=== PATIENT | female | born 1955 | race Caucasian/White ===

== ENCOUNTER 2023-09-29 05:08 | Observation (INO) ==
--- NOTE | 2023-09-04 15:30 | PAT Medication Instructions ---
Medication Instructions Date of Service September 04, 2023 Home Medications Medication Instructions Recorded Wheeled Walker #1 ea 07/27/23 Medication List: ascorbic acid 1,000 bg-fairnahnvqnb-vqwavptw powder effervescent pack (Emergen- C) 1 ea PO UD cholecalciferol (vitamin D3) 25 mcg (1,000 unit) capsule (Vitamin D3) 1,000 unit PO DAILY hydrochlorothiazide 12.5 mg tablet 12.5 mg PO QAM ibuprofen 600 mg tablet 600 mg PO UD PRN hip pain naproxen sodium 220 mg tablet (Aleve) 220 mg PO Q8H PRN hip pain MEDICATION INSTRUCTIONS: ASK your surgeon for instructions ibuprofen 600 mg tablet 600 mg PO UD PRN hip pain naproxen sodium 220 mg tablet (Aleve) 220 mg PO Q8H PRN hip pain DO NOT take the morning of surgery ascorbic acid 1,000 wr-vahybpxovmjo-ddhjwqvd powder effervescent pack (Emergen- C) 1 ea PO UD cholecalciferol (vitamin D3) 25 mcg (1,000 unit) capsule (Vitamin D3) 1,000 unit PO DAILY hydrochlorothiazide 12.5 mg tablet 12.5 mg PO QAM Other Notes Remember: NOTHING TO EAT OR DRINK AFTER MIDNIGHT If you have any questions please call us at [phone] or [phone] or [phone] or [phone]
--- NOTE | 2023-09-11 10:33 | Anesthesiology Consultation ---
Date of Service September 11, 2023 Assessment & Plan (1) Encounter for pre-operative examination: - Infectious disease screening: Per assessment on 09/11/23: No known infectious disease contacts or current infectious disease symptoms. No noted recent Covid positive test result. - Outpatient joint assessment: Pt currently scheduled for inpatient pathway. If surgeon requests review for outpatient joint pathway, patient is an acceptable candidate for outpatient joint program from anesthesia standpoint pending surgeon's office assessment that patient is motivated, has good support and completes [facility] preop requirements. Chart Review Chart Review: Acceptable Risk for Surgery and Patient seen in Pre Admission Testing Teaching & Discussion Pre-Anesthesia Teaching/Discussion Notes: Instructed NPO after midnight before surgery,except medications with 15 cc of water. Medication instructions provided according to the PAT guidelines. History Surgery Operation Date: 09/29/23 10:40 Proposed Procedures p Left Total Hip Arthroplasty - Samuel Amaro MD Height/Weight Height: 5 ft Weight: 86.8 kg Allergies Allergy/AdvReac Type Severity Reaction Status Date / Time No Known Allergies Verified 09/04/23 12:22 Medications Home Medications Medication Instructions Recorded Confirmed Last Taken Wheeled Walker #1 ea 07/27/23 07/27/23 Unknown ascorbic acid 1,000 1 ea PO UD 09/04/23 09/04/23 Unknown vw-sppxkjquzcjt-jjporlyn powder effervescent pack (Emergen-C) cholecalciferol (vitamin D3) 25 1,000 unit PO DAILY 09/04/23 09/04/23 Unknown mcg (1,000 unit) capsule (Vitamin D3) hydrochlorothiazide 12.5 mg tablet 12.5 mg PO QAM 09/04/23 09/04/23 Unknown ibuprofen 600 mg tablet 600 mg PO UD PRN hip pain 09/04/23 09/04/23 Unknown naproxen sodium 220 mg tablet 220 mg PO Q8H PRN hip pain 09/04/23 09/04/23 Unknown (Aleve) Past Medical History Medical History Arthritis of left hip History of colon polyps White coat syndrome with diagnosis of hypertension Hx HTN "controlled" per 06/2023 S PCP visit note, taking HCTZ Exercise / Class Metabolic Activity III < 4 Walking/Shop/Light housework Past Family History Family History Mother Family history of aneurysm Brother Family history of aneurysm Past Surgical History Surgical History History of cholecystectomy History of colonoscopy History of lumbar fusion 2009 History of partial hysterectomy History of total right hip replacement Past Anesthesia History No Family Hx of Anesthesia Complications and Other (Post-op hypotension with Right MARCELLA) History of PONV No Hx of PONV and No Hx of Motion Sickness Social History Smoking Status: Never smoker Do You Dip or Chew Tobacco: No alcohol intake frequency: holidays/special occasions only Hx Substance Use: No substance use type: does not use Review of Systems Patient denies chest pain, shortness of breath, dyspnea on exertion, fever, chills, cough, wheezing, palpitations. Physical Exam Vital Signs VITALS BP 159/68 P 67 TEMP 98.0 SP02 100%RA RESP 18 PHYSICAL Full cervical extension range of motion. Full TMJ range of motion. TMD 3 finger breaths Mallampati Score 2 Dentition: several missing (sides/molars), several crowns, implant (molar) Lungs: clear throughout to auscultation Cardiac: regular rate and rhythm, no murmurs noted Spine: normal Carotid arteries: negative bruit Extremities: no LE edema Lab Results Anesthesia Preop Results Results Anesthesia Widget: WBC 6.48 K/ul (4.8-10.8) 09/11/23 Hgb 13.1 g/dl (12.0-16.0) 09/11/23 Hct 38.2 % (37.0-47.0) 09/11/23 Plt 222 K/uL (130-400) 09/11/23 Na 137 mmol/L (136-145) 09/11/23 K 3.4 mmol/L (3.5-5.1) L 09/11/23 Cl 101 mmol/L (98-107) 09/11/23 CO2 29 mmol/L (21-32) 09/11/23 BUN 11 mg/dl (6-23) 09/11/23 Creat 0.57 mg/dl (0.6-1.2) L 09/11/23 Glucose Level 109 mg/dl (70-99(Fasting)) H 09/11/23 PT 10.5 Seconds (9.0-12.0) 09/11/23 PTT 28 Seconds (21-31) 09/11/23 INR 1.0 (0.9-1.1) 09/11/23 Blood Type O Negative 09/11/23 Antibody Screen NEGATIVE 09/11/23 Testing Electrocardiogram Date: 09/11/23 NSR at 67bpm. "Normal ECG" Chest X-Ray Date: 09/11/23 FINDINGS: The lungs are clear. The cardiac silhouette is normal in size. Calcifications within the aortic knob. No pleural effusions. No pneumothorax. No acute fractures identified. Partially visualized lower spinal fusion hardware is noted. IMPRESSION: No acute process.
--- NOTE | 2023-09-24 08:24 | History & Physical Report ---
Date of Service September 24, 2023 Assessment & Plan (1) Degenerative joint disease of left hip: 67-year-old female 13 years out from right hip with replacement as well as some spine surgery now with advanced left hip arthritis. She has failed conservative measures. She is ready to have her left hip fixed. Plan: Kate taken the operative left total hip replacement the risks Mente this procedure explained the patient clued but not limited to DVT, PE, , infection, neurological injury, vascular injury, bleeding problems, etc. Patient understands and desires to proceed informed consent was obtained. Her bone density looks a little bit questionable. Plan on using an uncemented Crye stem. If her bone density is poor we may use a cemented stem. She is planned to be discharged home using [facility]. Her sister is going to come and stay and assist in her care as well. (2) History of right hip replacement: (3) History of back surgery: History of Present Illness Chief Complaint: . Persistent left hip pain discomfort. Primary Care Provider: Juan Dang MD . The patient is a 67-year-old female long-term patient of mine from [facility] and node js developer of the [employer] who presents for surgical treatment of her left hip. She had a history of a right hip replacement done back in June 2010 and shortly after some back surgery. She is done quite well with this. Over the past several years she developed increased pain discomfort in her left hip. She has been putting off any surgery as she has had to run a restaurant. She has resorted to using a cane for the past several weeks to months. She describes groin pain thigh pain and knee pain. No numbness. She is tried medicines without much relief. She does use a cane which seemed to help but she is ready to have her hip fixed. Allergies Allergy/AdvReac Type Severity Reaction Status Date / Time No Known Allergies Verified 09/04/23 12:22 Home Medications Medication Instructions Recorded Confirmed Type Wheeled Walker #1 ea 07/27/23 07/27/23 Rx ascorbic acid 1,000 1 ea PO UD 09/04/23 09/04/23 History oh-fcnrxaoudpba-hskunyak powder effervescent pack (Emergen-C) cholecalciferol (vitamin D3) 25 1,000 unit PO DAILY 09/04/23 09/04/23 History mcg (1,000 unit) capsule (Vitamin D3) hydrochlorothiazide 12.5 mg tablet 12.5 mg PO QAM 09/04/23 09/04/23 History ibuprofen 600 mg tablet 600 mg PO UD PRN hip pain 09/04/23 09/04/23 History naproxen sodium 220 mg tablet 220 mg PO Q8H PRN hip pain 09/04/23 09/04/23 History (Aleve) Past Med/Surg History Medical History (Updated 09/24/23 @ 08:22 by Samuel Amaro MD) Degenerative joint disease of left hip History of colon polyps White coat syndrome with diagnosis of hypertension Hx HTN "controlled" per 06/2023 S PCP visit note, taking HCTZ Arthritis of left hip Surgical History (Updated 09/24/23 @ 08:22 by Samuel Amaro MD) History of right hip replacement History of back surgery History of lumbar fusion 2009 History of partial hysterectomy History of total right hip replacement History of cholecystectomy History of colonoscopy Family History Mother Family history of aneurysm Brother Family history of aneurysm Social History Smoking Status: Never smoker Do You Dip or Chew Tobacco: No; Hx Substance Use: No Preferred Language: Belarusian Communication Ability: Effective Reel Blade Bender Furnace Tender Required: No Beliefs That Will Affect Care: None Current Living Situation: Alone Feels Safe at Home: Yes Assistive Devices: Cane, Contacts and Glasses Review of Systems All systems reviewed & are unremarkable except as noted in HPI & below. Physical Exam . Physical examination reveals a pleasant middle-age female. Looks in reasonably good health. Examination left hip reveal patient walks with a markedly antalgic gait. She may be just a little bit shorter on the left side compared to the right. She uses a cane to walk. She limps significantly. Very stiff hip with internal rotation -10. Negative straight leg raise. She is neurologically int act. Constitutional WD/WN, vitals as above Neck trachea midline, no thyromegaly Respiratory normal respiratory effort, lungs clear to auscultation Cardiovascular RRR, no murmur, no edema Gastrointestinal (Abdomen) normal bowel sounds, soft, nontender, no hepatosplenomegaly Results & Data Results & Data Laboratory Results . Diagnostic Findings . X-rays left hip were reviewed. Shows advanced left hip arthritis. She has complete loss of her superior joint space. She got osteophytes around the femoral head and acetabulum. Diffuse osteopenia. Right hip replacement looks to be good position without problems. She does have evidence of previous spine surgery above. PG Care Time/CCT Total # of Minutes Spent Total Time Spent with Patient: Total time spent is greater than 50% in coordination of care (as documented) at patient's floor/unit and/or counseling patient: Coding Level of Care Code None Diagnoses Degenerative joint disease of left hip M16.12 History of right hip replacement Z96.641 History of back surgery Z98.890
[2023-09-29] MEDS ORDERED: ACETAMINOPHEN 500 MG TAB PO SCH (06:00)
[2023-09-29] MEDS ORDERED: TRANEXAMIC ACID 1,000 MG **IV Pre-op IV SCH (06:00)
[2023-09-29] MEDS ORDERED: LR 60ML/HR IV SCH (06:00)
[2023-09-29] MEDS ORDERED: Scopolamine 1 MG TDSY TD SCH (06:00)
[2023-09-29] MEDS ORDERED: CeleBREX 200 MG CAP PO SCH (06:00)
[2023-09-29] MEDS ORDERED: FAMOTIDINE 20 MG TAB PO SCH (06:00)
[2023-09-29] MEDS ORDERED: ceFAZolin 2000MG 2,000 MG/15 ML SYR IV SCH (06:00)
[2023-09-29] MEDS ORDERED: METOCLOPRAMIDE HCL 10 MG TABLET PO SCH (06:00)
[2023-09-29] MEDS ORDERED: LR 500ML BOLUS, THEN 15ML/HR IV SCH (06:00)
[2023-09-29] MEDS ORDERED: dexAMETHasone**PF** 10 MG/ML VIAL IV SCH (06:00)
[2023-09-29] MEDS ORDERED: ROPIV 0.5% 246mg, Ketorolac 30mg, EPINEPHrine 0.5mg in NSS INFIL SCH (06:00)
[2023-09-29] MEDS ORDERED: BUPIVACAINE 0.5 % 5 MG/1 ML PF 10ML VIAL ONE (06:20)
[2023-09-29] MEDS ORDERED: PROPOFOL IV EMULSION 10 MG/ML 20 ML VIAL IV ONE (06:36)
[2023-09-29] MEDS ORDERED: LIDOCAINE 2% 2 ML VIAL/AMP(20MG/ML) INFIL ONE (06:37)
[2023-09-29] MEDS ORDERED: ONDANSETRON INJ 2 MG/ML 2 ML VIAL ONE (06:37)
[2023-09-29] MEDS ORDERED: BUPIVACAINE/EPINEPHRINE 0.5% MPF 1:200,000 30 ML VIAL ONE (06:37)
[2023-09-29] MEDS ORDERED: MIDAZOLAM HCL 1 MG/ML 2ML VIAL ONE ×2 (06:40→07:06)
[2023-09-29] MEDS ORDERED: fentaNYL citrate PF 100 MCG/2 ML VIAL ONE (06:40)
[2023-09-29] MEDS ORDERED: MoRPHine SULFATE PF 1 MG/ML 10 ML AMP/VIAL ONE (06:47)
--- NOTE | 2023-09-29 06:49 | History & Physical Bridge Note ---
Date of Service September 29, 2023 History & Physical Bridge Note I have examined the patient, reviewed the History & Physical and in the interval since the performance of the History & Physical I have noted the following changes of clinical significance: no changes noted
[2023-09-29] MEDS ORDERED: ePHEDrine sulfate 50 MG/5 ML SYR ONE (07:15)
[2023-09-29] MEDS ORDERED: ONDANSETRON INJ 2 MG/ML 2 ML VIAL IV PRN (08:07)
[2023-09-29] MEDS ORDERED: MEPERIDINE HCL 25 MG/ML CARP/VIAL IV PRN (08:07)
[2023-09-29] MEDS ORDERED: PROMETHAZINE HCL 12.5 MG in SODIUM CHLORIDE 0.9% 50 ML IV PRN (08:07)
[2023-09-29] MEDS ORDERED: NALBUPHINE HCL 5 MG in SYRINGE 0 ML IV PRN (08:07)
[2023-09-29] MEDS ORDERED: MoRPHine SULFATE PF 1 MG/ML 10 ML AMP/VIAL INT SPINAL ONE (08:07)
[2023-09-29] MEDS ORDERED: diphenhydrAMINE 50 MG/ML VIAL IV PRN (08:07)
[2023-09-29] MEDS ORDERED: NALOXONE HCL 1 MG in SODIUM CHLORIDE 0.9% 1,000 ML IV PRN (08:07)
[2023-09-29] MEDS ORDERED: METOCLOPRAMIDE HCL 10 MG in SODIUM CHLORIDE 0.9% 50 ML IV PRN (08:07)
[2023-09-29] MEDS ORDERED: HYDROmorphone INJ 0.5 MG/0.5 ML SYR IV PRN (08:07)
[2023-09-29] MEDS ORDERED: KETOROLAC 30 MG/ML VIAL IV PRN (08:07)
[2023-09-29] MEDS ORDERED: ePHEDrine sulfate 50 MG/ML AMP IV PRN (08:07)
[2023-09-29] MEDS ORDERED: NALOXONE HCL 0.4 MG/1 ML VIAL/CARP IV PRN (08:07)
[2023-09-29] MEDS ORDERED: LACTATED RINGER'S 500 ML IV PRN (08:07)
[2023-09-29] MEDS ORDERED: MoRPHine SULFATE 2 MG/ML CARP IV PRN (08:07)
[2023-09-29] MEDS ORDERED: NALOXONE HCL 0.08 MG in SYRINGE 1.8 ML IV PRN (08:07)
[2023-09-29] MEDS ORDERED: NO NARCOTICS OR SEDATIVES SCH (08:15)
[2023-09-29] MEDS ORDERED: DC INTRASPINAL MORPHINE SCH (08:15)
[2023-09-29] MEDS ORDERED: SODIUM CHLORIDE 0.9% 1,000 ML IV SCH (08:15)
--- NOTE | 2023-09-29 08:54 | Operative Report ---
PG Post Operative Report Pre & Post Diagnosis Operation Date: 09/29/23 07:00 Pre-Op Diagnosis: Left Hip Advanced Degenerative Joint Disease Post-Op Diagnosis: Left Hip Advanced Degenerative Joint Disease I identified the patient and participated in the time-out.: Yes Procedure Operation Date: 09/29/23 07:00 Actual Procedures p Left Total Hip Arthroplasty, Uncemented(Left) - Samuel Amaro MD Surgeon Samuel Amaro MD Inspector Ball Points Adis Villalta PA-C Estimated Blood Loss 200 Findings Consistent with Post-Op Diagnosis Operative findings with advanced left hip DJD. She had grade 4 oiva-qv-ijdy disease. She had a very tight and stiff hip. She had osteophytes around the acetabulum. Small hip joint effusion. Specimens Left femoral head sent for pathology Anesthesia Type Spinal MAC Complications none Disposition Accompanied Patient To Recovery: No Indications Patient is a 67-year-old female is had a several year history of increased left hip pain discomfort is gradually gotten worse over time. She had a right hip replaced about 13 years ago and done well from this. She had to resort to using a cane to get around. X-rays show advanced left hip arthritis. She had fairly central and diffuse disease. She elects to a total hip arthroplasty. Description of Procedure Operative implants consist of: 1 Biomet G7 size 50 mm acetabular shell. 2. [place] varitypist. 3. 6.5 cancellous acetabular screws 1 of 35 mm length 1 to 25 mm length. 4. Highly cross-linked polyethylene liner with a 50 mm outer diameter 36 mm inner diameter. 5. DePuy Corail I size 10 KLA 125 degree angle short neck femoral stem. 6. +1.5/36 mm ceramic articular ball. The patient was taken the operating, identified, placed on the operating table in the supine position. All contact areas were appropriately padded. IV antibiotics tried by anesthesia team. A spinal anesthetic had been implemented holding area. Guillory catheter was placed in sterile fashion. The patient then placed in the right lateral decubitus position. An axillary roll was placed. A Stulberg hip positioner was used. For positioning. Left hip and leg were then prepped and draped in usual sterile fashion. A posterolateral approach to the left hip was then performed to a curvilinear incision centered over the greater trochanter. Sharp dissection was carried through subcutaneous tissue down below the IT band gluteal fascia Treatment gluteal fascia incised longitudinally in line with skin incision. The underlying greater bursa was excised. The piriformis and external rotators were taken off the posterior aspect the hip along with hip joint capsule as a single layer. Even doing this and completely released and the posterior capsule I could not dislocate her hip very easily and I was afraid we might break the femur doing so. Therefore I did an in situ cut femoral neck just below the femoral head. The femur was retracted anteriorly. I then made a lower cut about 12 mm above the lesser trochanter. The femur was reamed retracted anteriorly. The femoral head was removed. The labrum was excised. Attention drawn the acetabulum. The acetabular labrum was excised. The pulmonary fat was excised. I reamed the acetabulum again with a size 43 and progressing up to 49. I did ream a little bit with a 50 reamer and then placed a 50 mm Biomet G7 acetabular shell in about 40 degrees lateral opening and 20 degrees of anteversion. We worked hard to get this in proper position with her soft tissue structure and the fact that she has had back fusion to try and maximize her stability. Trial liner was placed. It was fixed with two 6.5 screws. Attention drawn the femur. The proximal femur then with a MBW Enterprise cutter followed by canal finder. I broached beginning with size 8 and progressing up to a 10. We then trialed the hip and even with the +1.5 neck I could not get this reduced. Therefore I took the broach out and cut down to a lower neck cut of about 8. We briefly broached up to a 10. We were able to reduce the hip with +1.5 neck length head. The hip was fully stable. Soft tissue tension seemed appropriate. The leg lengths seemed equal. We elect to place these implants. All trial implants were removed. An apex hole military technology specialist was placed. Highly cross-linked polyethylene liner was placed. A size 10 KLA short neck 125 degree angle femoral stem was impacted in position. +1.5/36 mm ceramic articular ball was placed. Hip was located once again found to be stable. Attention drawn toward closing. Wound was irrigated coconuts pulsatile lavage solution. I did inject locally with 60 cc of half percent Marcaine with epinephrine. The posterior capsule and external rotators were then repaired through drill holes in the posterior trochanter with #2 Tycron suture. The IT band gluteal fascia then closed in 1 PDS suture in running fashion with subcutaneous tissues then closed with 2 layers the deep layer #2 Vicryl in a buried erupted fashion the subcutaneous tissues with 2-0 Dexon suture in a buried interrupted fashion. Skin was closed with skin adonis. A Prevena VAC dressing was applied due to the very thick soft tissue envelope. The patient was then transferred to the recovery room in stable condition. The patient tolerated the procedure well and there were no complications. Adis Villalta, my physician kindergarten assistant, was present for the entire procedure. His assistance was essential and required for appropriate patient positioning, prepping and draping, surgical exposure, performing the technical details of the operation, placement the implants, closure of the wound, and placement of the sterile bandage. I attest to the content of the Intraoperative Record and any orders documented therein. Any exceptions are noted below.
--- NOTE | 2023-09-29 09:32 | XRay Report ---
AP PELVIS, CROSSTABLE LATERAL LEFT HIP History: Left total hip arthroplasty. Degenerative arthritis. Postop. FINDINGS: The patient is status post a left total hip arthroplasty. The hardware is intact. No fractu re or dislocation. Skin adonis are in place. Prior right total hip arthroplasty. IMPRESSION: Left total hip arthroplasty. No evidence for hardware complication. ACT 112: Negative or not required by law. Electronically signed by: Gabriel Hamilton M.D. 09/29/2023 9:31 AM
--- NOTE | 2023-09-29 10:01 | Anesthesiology Progress Note ---
Date of Service September 29, 2023 Anesthesia Post Procedure Vital Signs Vital Signs: Temp Pulse Pulse Resp BP Pulse Ox O2 Del Method 09/29/23 09:25 52 L 8 L 110/53 L 100 09/29/23 09:15 66 18 97/73 L 100 Oxymask 09/29/23 09:05 65 24 107/62 100 Oxymask 09/29/23 08:55 52 L 14 113/52 L 100 Oxymask 09/29/23 08:45 36.9 C 62 16 99/63 L 96 Oxymask 09/29/23 05:49 36.7 C 67 18 160/76 H 98 Room Air O2 Flow Rate 09/29/23 09:25 0 09/29/23 09:15 2 09/29/23 09:05 2 09/29/23 08:55 2 09/29/23 08:45 5 09/29/23 05:49 Pain Intensity Left Hip: Pain Intensity: 9 Transfer of Care Handoff Completed per policy Notes Mental Status: alert / awake / arousable and participated in evaluation Nausea / Vomiting: adequately controlled Pain: adequately controlled Airway Patency, RR, SpO2: stable & adequate BP & HR: stable & adequate Hydration State: stable & adequate Neuraxial Anesthesia: was administered and sensory block is resolving Anesthetic Complications: no major complications apparent and Pt Satisfied with anesthetic care
[2023-09-29] MEDS ORDERED: MAGNESIUM HYDROXIDE SUSP 30 ML UDC PO PRN (10:19)
[2023-09-29] MEDS ORDERED: bisacodyL 10 MG SUPP PR PRN (10:19)
[2023-09-29] MEDS ORDERED: NON-FORMULARY MEDICATION (Ascorbic Acid-Multivit-Min [Emergen-C] 1,000 mg Powder Effervesc PO SCH (10:19)
[2023-09-29] MEDS ORDERED: ALUMINUM/MAGNESIUM SUSP 30 ML UDC PO PRN (10:19)
[2023-09-29] MEDS: ORTHO SCH ×5 (10:31→23:49)
[2023-09-29] MEDS: SODIUM CHLORIDE 0.9% 1,000 ML IV SCH ×2 (10:39→22:54)
[2023-09-29] MEDS: ASPIRIN 81 MG ECTAB PO SCH ×2 (11:07→20:45)
[2023-09-29] MEDS: hydroCHLOROthiazide 25 MG TAB PO SCH (11:07)
[2023-09-29] MEDS: DOCUSATE SODIUM 100 MG CAP PO SCH ×2 (11:07→20:45)
[2023-09-29] MEDS: CHOLECALCIFEROL 25 MCG (1000 UNITS) TAB PO SCH (11:07)
[2023-09-29] MEDS: MULTIVITAMIN TAB PO SCH (11:07)
[2023-09-29] MEDS: SENNA 8.6 MG TAB PO SCH ×2 (11:08→20:47)
[2023-09-29] MEDS: ACETAMINOPHEN 500 MG TAB PO SCH ×3 (11:08→20:46)
[2023-09-29] MEDS: KETOROLAC TROMETHAMINE 15 MG/ML VIAL IV SCH ×3 (11:08→23:23)
[2023-09-29] MEDS: Scopolamine CHECK PATCH PLACEMENT SCH ×2 (13:51→23:48)
[2023-09-29] MEDS: ceFAZolin 2000MG 2,000 MG/15 ML SYR IV SCH ×2 (14:38→23:23)
[2023-09-29] MEDS ORDERED: TRANEXAMIC ACID / 0.7% NACL 1,000 MG/100 ML BAG IV SCH (15:00)
--- OUTSIDE RECORDS SUMMARY | 2023-09-29 15:34 | External Medical Summary | Summary of Care ---
Author Name Unknown Organization [facility] Address [address] [place] [address] Phone [phone] Care Team Providers Care [employer] Faculty Member Name Role Phone Juan Darling MD Primary Care Prov ider Reason for Visit * Reason Comments Follow Up C Encounter Details Date Type Department Care Team ([facility] st Contact Info) Description 09/12/2023 8:45 AM EST Office Visit Podiatry [address] [place] [address] Angelo Nogueira, MIGUEL [address] [place] [address] Onychomycosis*; Pain due to onychomycosis of toenail of left foot Allergies No known active allergiesdocumented as of this encounter (statuses as of 09/12/2023) Medications Medication Sig Dispensed Refills Start Date End Date Status Ciclopirox 8 % External Solution Apply over nail and surrounding skin. Apply daily over previous coat. After seven (7) days, may remove with alcohol and continue cycle. 6.6 mL 0 12/13/2022 Active Additional Information Patient not taking.Reported on 08/14/2023 hydroCHLOROthiazid e 12.5 MG Oral Capsule (Hydrodiuril)Indic ations:HTN, goal below 150/90 TAKE 1 CAPSULE BY MOUTH EVERY MORNING 90 Capsule 1 05/29/2023 Active documented as of this encounter (statuses as of 09/12/2023) Active Problems Problem Noted Date Diagnosed Date ZELALEM (generalized anxiety disorder) 01/16/2019 HTN, goal below 150/90 01/16/2019 Morbid obesity due to excess calories 09/17/2018 documented as of this encounter (statuses as of 09/12/2023) Resolved Problems Problem Noted Date Diagnosed Date Resolved Date Body mass index (BMI) of 45. 0 to 49.9 in adult 02/04/2019 08/07/2019 Overview: Per Obesity protocol documented as of this encounter (statuses as of 09/12/2023) Immunizations Name Administration Dates Next Due Pneumococcal Conjugate Vaccine, 20-valent (Prevn ar20) 07/15/2023 TDAP (age 10 and older)(Boostrix) 09/17/2018 Varicella Zoster Vaccine (Adult) 05/15/2014 documented as of this encounter Social History Tobacco Use Types Packs/Day Years Used Date Smoking Tobacco: Never Smokeless Tobacco: Never Alcohol Use Standard Drinks/Week Comments Yes 0 (1 standard drink = 0.6 oz pur e alcohol) AUDIT-C Answer Date Recorded Frequency of Alcohol Consumption Never 09/17/2018 Average Number of Drinks Not on file 019 Frequency of Binge Drinking Not on file 08/29 PHQ-2 Answer Date Recorded PHQ-2 Score 0 08/07/2019 Hunger Vital Sign Answer Date Recorded Worried About Running Out of Food in the Last Ye ar Never true 08/07/2019 Ran Out of Food in the Last Year Never true 08/07/2019 Sex and Gender Information Value Date Recorded Sex Assigned at Female 01/16/2019 3:00 PM EDT Gender Identity Female 01/16/2019 3:00 PM EDT Sexual Orientation Not on file Job Start Date Occupation Industry Not on file Not on file Not on file documented as of this encounter Progress Notes * Angelo Nogueira DPM - 09/12/2023 8:58 AM EST Patient presents with painful thickened fungal nails 1,3,5 left causing pain when wearing shoes andwalking. Patient relates that nails have been this way for years but are getting progressively worse. Patient presents for evaluation and treatment. No past medical history on file. Past Surgical History: Procedure Laterality Date CARPAL TUNNEL SURGERY Bilateral COLONOSCOPY, DIAGNOSTIC (RECTUM) 04/21/2014 COLONOSCOPY FLEXIBLE PROXIMAL DIAGNOSTIC performed by Esther Swanson DO [place] [facility] [place]AL OF PELVIC STRUCTURES REMOVE GALLBLADDER REMOVE PART OF LUMBAR VERTEBRA REVISION OF TOTAL HIP JOINT SURGERY Left Family History Problem Relation Age of Onset Breast Cancer Sister Social History Socioeconomic History Marital status: Single Spouse name: Not on file Number of children: Not on file Years of education: Not on file Highest education level: Not on file Occupational History Not on file Social Needs Financial resource strain: Not on file Food insecurity Worry: Never true Inability: Never true Transportation needs Medical: Not on file Non-medical: Not on file Tobacco Use Smoking status: Never Smoker Smokeless tobacco: Never Used Substance and Sexual Activity Alcohol use: Yes Frequency: Never Drug use: No Sexual activity: Not on file Lifestyle Physical activity Days per week: Not on file Minutes per session: Not on file Stress: Not on file Relationships Social connections Talks on phone: Not on file Gets together: Not on file Attends advent service: Not on file Active member of club or organization: Not on file Attends meetings of clubs or organizations: Not on file Relationship status: Not on file Intimate partner violence Fear of current or ex partner: Not on file Emotionally abused: Not on file Physically abused: Not on file Forced sexual activity: Not on file Other Topics Concern Not on file Social History Narrative Not on file Vaping/E-Cigarette Use Vaping/E-Cigarette Use Never User Vaping/E-Cigarette Substances Nicotine No Cannabidiol (CBD) No Vaping/E-Cigarette Devices Disposable No Current Outpatient Medications Medication Sig Dispense Refill Ciclopirox 8 % External Solution Apply over nail and surrounding skin. Apply daily over previous coat. After seven (7) days, may remove with alcohol and continue cycle. (Patient not taking: Reported on 08/14/2023) 6.6 mL 0 hydroCHLOROthiazide 12.5 MG Oral Capsule (Hydrodiuril) TAKE 1 CAPSULE BY MOUTH EVERY MORNING 90 Capsule 1 No current facility-administered medications for this visit. ROS EXAM: CONSTITUTIONAL: No change in weight, No weakness, No fatigue and No fevers, sweats, or chills EXTREMITIES: No pain, redness or swelling on the joints SKIN/INTEGUMENTARY: No edema, No rash and No itching NEUROLOGIC: Normal balance, No headaches, No seizures and No weakness Objective: Vascular examination: DP 2/4 bilateral PT 2/4 bilateral SPVFT 3sec Dermatological examination: nails 1,3,5 left appear mycotic thickened and painful Orthopedic examination: unremarkable Neurological examination: Epicritic sensation intact Assessment: The primary encounter diagnosis was Onychomycosis. A diagnosis of Pain due to onychomycosis of toenail of left foot was also pertinent to this visit. Plan: Discussed etiology and treatment options with the patient. Discussed debridement and topical treatment vs oral antifungal treatment Debridement of multiple mycotic nails(3) was performed to reduce both length and bulk of nails documented in this encounter Nursing Notes * Lion Mohan MED ASSIST - 09/12/2023 8:43 AM EST Follow up RFC. documented in this encounter Plan of Treatment Upcoming Encounters Date Type Department Care Team (Late st Contact Info) Description 10/23/2023 11:20 AM EST Office Visit Dermatology [address] [phone] Segundo Barrientos PA-C [address] [place] [id number] 12/12/2023 9:00 AM EDT Office Visit Podiatry [address] [place] [phone] Angelo Nogueira DPM [facility] [place] [address] 02/06/2024 9:40 AM EDT Office Visit [address] [place] [address] Juan Darling MD [address] [place] [address] Scheduled Orders Name Type Priority Associated Diagnoses Orde r Schedule DEBRIDEMENT OF NAIL(S) 1-5 Procedures Routine Onychomycosis Pain due to onychomycosis of toenail of left foot Ordered: 09/12/2023 Health Maintenance Due Date Last Done Comments COVID-19 Vaccine (#1) 06/02/1956 Zoster Vaccines (2 of 3) 07/10/2014 05/15/2014 COLONOSCOPY-EVERY 5 YRS AGES 18-100 04/21/2019 04/21/2014, 04/21/2014 Depression Screening 08/07/2020 08/07/2019 Influenza Vaccine (FLU shot) (#1) 2023 Mammogram 12/03/2023 12/02/2022, 02/2 08/2021, 07/15/2020, Additional history exists GFR 07/15/2024 07/15/2023, 06/28, 06/02/2021, Additional history exists Albumin/Creatinine Ratio 05/03/2025 05/03/2022 Diabetes Screening 07/15/2026 07/15/2023, 1 09/11/2021, 06/02/2021, Additional history exists Lipid Panel 07/12/2027 07/12/2022, 1001/2021, 04/06/2020, Additional history exists DTaP,Tdap,and Td Vaccines (2 - Td or Tdap) 09/17/2028 09/17/2018 DXA Scan 12/02/2029 12/02/2022 Pap Smear Discontinued 04/06/2020 Pneumococcal Vaccine: 65+ Years Completed 07/15/2023 GARDASIL-HPV IMMUNIZATION SERIES Aged Out No longer eligible based on patient's age to complete this topic Hepatitis B Aged Out No longer eligi ble based on patient's age to complete this topic MENINGOCOCCAL (MENACTRA/MENVEO) Aged Out No longer eligible based on patient's age to complete this topic documented as of this encounter Medical Devices Not on filedocumented as of this encounter Visit Diagnoses Diagnosis Onychomycosis- Primary Dermatophytosis of nail Pain due to onychomycosis of toenail of left foot documented in this encounter Care Teams [employer] Faculty Member Relationship Specialty Start Date End Date Juan Darling MD [address] [place] [address] PCP - General Family Medicine 08/10/18 documented as of this encounter
[2023-09-29] MEDS: ASCORBIC ACID 500 MG TAB PO SCH (16:46)
[2023-09-29] MEDS ORDERED: SENNA 8.6 MG TAB PO SCH (21:00)
[2023-09-30] MEDS ORDERED: HYDROmorphone INJ 0.5 MG/0.5 ML SYR IV PRN (02:07)
[2023-09-30] MEDS ORDERED: diphenhydrAMINE Capsule 25 MG CAP PO PRN (02:07)
[2023-09-30] MEDS ORDERED: ONDANSETRON INJ 2 MG/ML 2 ML VIAL IV PRN (02:07)
[2023-09-30] MEDS ORDERED: traMADol HCL 50 MG TABLET PO PRN (02:07)
[2023-09-30] MEDS ORDERED: METOCLOPRAMIDE HCL INJ 5 MG/ML 2 ML VIAL IV PRN (02:07)
[2023-09-30] MEDS ORDERED: NALOXONE HCL 0.4 MG/1 ML VIAL/CARP IV PRN (02:07)
[2023-09-30] MEDS: KETOROLAC TROMETHAMINE 15 MG/ML VIAL IV SCH ×2 (05:48→11:47)
[2023-09-30 06:29] LABS: Basophils # (auto) 0.01 K/uL (0.00-0.20); Basophils % (auto) 0.1 %; Eosinophils # (auto) 0.02 K/uL (0.00-0.50); Eosinophils % (auto) 0.3 %; Hematocrit (blood only) 29.8 % (37.0-47.0); Hemoglobin 10.8 g/dl (12.0-16.0); Immature Granulocytes # (auto) 0.03 K/uL (0.01-0.20); Immature Granulocytes % (auto) 0.4 %; Lymphocytes % (auto) 20.6 %; Mean Corpuscular Hemoglobin 31.4 pg (25.0-34.0); Mean Corpuscular Hgb Conc 36.2 g/dL (32.0-36.0); Mean Corpuscular Volume 86.6 fL (80.0-100.0); Mean Platelet Volume 11.1 fL (9.4-12.4); Monocytes % (auto) 8.2 %; Neutrophils # (auto) 5.13 K/uL (1.40-6.50); Neutrophils % (auto) 70.4 %; Platelet Count 172 K/uL (130-400); RDW Coefficient of Variation 12.3 % (11.5-14.5); Red Blood Count 3.44 M/uL (4.20-5.40); White Blood Count 7.29 K/ul (4.8-10.8)
[2023-09-30 06:42] LABS: Calcium 8.4 mg/dl (8.6-10.3); Creatinine Clr Calc Pharmacy 87.6 ml/min; Est GFR (African American) 109.5 ml/min; Est GFR (Non-African American) 94.5 ml/min; Potassium 3.1 mmol/L (3.5-5.1)
[2023-09-30] MEDS ORDERED: dexAMETHasone 10 MG in SYRINGE 0 ML IV SCH (08:00)
--- NOTE | 2023-09-30 08:20 | Surgery Progress Note ---
Date of Service September 30, 2023 Assessment & Plan (1) Status post left hip replacement: Plan: 67-year-old female postop day 1 from a left hip replacement doing well. Pain is controlled. Hips located. She is neurologically intact. Potassium is a little low and will supplement that today. Plan: 1. DVT prophylaxis including thigh-high teds, SCDs, aspirin twice a day. 2. PT/OT. Weight-bear as tolerated left total hip protocol. 3. Pain control doing okay with current pain regimen #4 hypokalemia. Potassium is a bit low. Will supplement that today. 5. Disposition plan to discharge home with some home health if she does okay in therapy today. 6. Wound care. A Prevena VAC dressing in place. Will leave that in place for 1 week. (2) Hypokalemia: Admission and Anticipated Discharge Date Admission Date: September 29, 2023 Subjective 67-year-old female now postop day 1 from a left uncemented hip replacement. She is doing well. She is gotten up and walked a little bit but not much so far. She denies any significant pain. No chest pain or shortness of breath. Physical Exam Physical Exam: Physical examination was a pleasant middle-age female patient lying bed looks comfortable. Examination left hip reveals a Prevena VAC dressing to be in place. Leg lengths are equal. She can dorsiflex and plantarflex her foot appropriately. She is neurologically intact. Respiratory: normal respiratory effort, lungs clear to auscultation Cardiovascular: RRR, no murmur, no edema Gastrointestinal (Abdomen): normal bowel sounds, soft, nontender, no hepatosplenomegaly Results & Data Vital Signs (Past 12 Hours) Vital Signs Temp Pulse Resp BP BP Pulse Ox O2 Del Method 09/30/23 07:29 36.6 C 56 L 16 96/59 L 98 Room Air 09/30/23 04:22 36.6 C 51 L 16 102/62 99 Room Air 09/30/23 02:00 18 98 09/30/23 01:00 17 95 09/30/23 00:00 18 97 09/29/23 23:46 36.9 C 51 L 17 114/65 98 Room Air 09/29/23 23:00 18 98 09/29/23 22:00 18 97 09/29/23 21:00 18 96 Laboratory Results Hemoglobin is 10.8. Hematocrit 29.8. Potassium is a bit low at 3.1. PG Care Time/CCT Total # of Minutes Spent Total Time Spent with Patient: Total time spent is greater than 50% in coordination of care (as documented) at patient's floor/unit and/or counseling patient: Coding Level of Care Code None Diagnoses Status post left hip replacement Z96.642 Hypokalemia E87.6
[2023-09-30] MEDS ORDERED: POTASSIUM CHLORIDE CRTAB 20 MEQ TABCR PO ONE (08:21)
[2023-09-30] MEDS: DOCUSATE SODIUM 100 MG CAP PO SCH (08:26)
[2023-09-30] MEDS: CHOLECALCIFEROL 25 MCG (1000 UNITS) TAB PO SCH (08:26)
[2023-09-30] MEDS: hydroCHLOROthiazide 25 MG TAB PO SCH (08:26)
[2023-09-30] MEDS: MULTIVITAMIN TAB PO SCH (08:26)
[2023-09-30] MEDS: SENNA 8.6 MG TAB PO SCH (08:26)
[2023-09-30] MEDS: ASCORBIC ACID 500 MG TAB PO SCH (08:27)
[2023-09-30] MEDS: ACETAMINOPHEN 500 MG TAB PO SCH (08:27)
[2023-09-30] MEDS: Scopolamine CHECK PATCH PLACEMENT SCH (08:28)
[2023-09-30] MEDS: ASPIRIN 81 MG ECTAB PO SCH (08:29)
--- NOTE | 2023-10-04 14:42 | Discharge Summary ---
Date of Service October 04, 2023 Discharge Data Procedures Performed Operation Date: 09/29/23 07:00 Actual Procedures p Left Total Hip Arthroplasty, Uncemented(Left) - Samuel Amaro MD Hospital Course (1) Status post left hip replacement: This is a 67 year old patient admitted on 09/29/23 and underwent total hip arthroplasty. She tolerated the procedure well and there were no complications. Transferred to the PACU post op and later to the orthopedic floor for further care. She was given ancef for antibiotic prophylaxis. She was also given WILLIAM stockings, SCDs, and aspirin for DVT prophylaxis. Hemoglobin, hematocrit, and vital signs were monitored during her hospital stay and remained stable. Did not require any blood transfusions. There were no complications during her hospital stay. By post op day #1 the patient was tolerating a regular diet, pain was reasonably controlled with oral pain medicine, and she was participating in physical therapy. On post op day #1 the patient was discharged home and set up with home health care. She was given printed discharge instructions including prescriptions for extra strength tylenol, aspirin, ketorolac, tramadol, zofran, and senokot. Continue hip precautions. Continue physical therapy, weight bearing as tolerated. Continue WILLIAM stockings. Follow up approximately 2 weeks post op or sooner if there are problems or concerns. Coding Level of Care Code None Diagnoses Status post left hip replacement Z96.642
== END 2023-09-30 13:54 | disposition home health service (06) ==
LOC: 3E 05:08 → ASU 05:08
DX: M16.12 Unilateral primary osteoarthritis, left hip; Z79.899 Other long term (current) drug therapy; Z79.82 Long term (current) use of aspirin; I10 Essential (primary) hypertension; Z96.641 Presence of right artificial hip joint